=== PATIENT | female | born 1975 | race Caucasian/White ===

== ENCOUNTER → 2021-06-16 | Day surgery (SDC) | payer OTHER ==
[~2021-06-16] VITALS: Ht 177.8 cm; Wt 117.0 kg
[~2021-06-16] MED LIST: BUSPIRONE HCL10 MG PO; WELLBUTRIN XL300 MG PO
[2021-06-16 12:28] LABS: HCG (URINE) SCREEN NEGATIVE (NEGATIVE)
[2021-06-16 13:58] LABS: HGB 14.9 g/dl (12.5-16.0); MCH 30.5 pg (25.0-31.0); MCHC 33.1 g/dL (32.0-36.0); MCV 92.2 fL (78.0-100.0); MPV 9.1 fL (6.0-9.5); RBC 4.88 M/uL (4.20-5.40); RDW 11.9 % (11.5-14.0); WBC 11.2 K/uL (4.0-10.5)
[2021-06-16 14:25] LABS: ALBUMIN 3.5 g/dL (3.4-5.0); BILIRUBIN - TOTAL 0.4 mg/dL (0.2-1.0); CREATININE 0.85 mg/dL (0.51-0.95); GLOBULIN (CALCULATION) 3.4 g/dL; POTASSIUM 4.1 mmol/L (3.5-5.1); TOTAL PROTEIN 6.9 g/dL (6.4-8.2)
== END | disposition home or self-care (01) ==
LOC: FAS 11:47
PROVIDERS: Anesthesiology; Legal Medicine
DX: M24.612 Ankylosis, left shoulder (principal); M75.112 Incomplete rotator cuff tear or rupture of left shoulder, not specified as traumatic; G89.18 Other acute postprocedural pain; M75.02 Adhesive capsulitis of left shoulder; R94.31 Abnormal electrocardiogram [ECG] [EKG]; E66.9 Obesity, unspecified; Z68.37 Body mass index [BMI] 37.0-37.9, adult; Z88.5 Allergy status to narcotic agent; G56.12 Other lesions of median nerve, left upper limb; G56.22 Lesion of ulnar nerve, left upper limb; G56.02 Carpal tunnel syndrome, left upper limb
CPT/HCPCS: 36415; 80053; 84703; 93005; J0171; J1200; J2250; J2704; J2795; J3010; J7120